=== PATIENT | male | born 1990 ===

== ENCOUNTER → 2017-12-09 | Outpatient (CLI) | payer BC ==
[~2017-12-09] MED LIST: GADOBUTROL 10 MMOL/10 ML PFS ONE
== END | disposition home or self-care (01) ==
LOC: CFH 13:40
PROVIDERS: ATTEND Otolaryngology Facial Plastic Surgery
DX: G43.101 Migraine with aura, not intractable, with status migrainosus (principal); H81.20 Vestibular neuronitis, unspecified ear
CPT/HCPCS: 70553; A9585